=== PATIENT | female | born 1955 | race Hispanic/Latino ===

== ENCOUNTER 2018-11-18 05:37 | Inpatient (IN) | payer OTHER ==
--- NOTE | 2018-11-18 06:00 | ED PDOC ---
Arrival/HPI - General Chief Complaint: Palpitations Time Seen by Provider: 11/18/18 05:38 Historian: Patient - History of Present Illness Narrative History of Present Illness (Text): 11/18/18 05:56 63 year old female, whose past medical history includes Chondrosarcoma, hypertension, diabetes, and cardiac ablation for A-fib, presents to the emergency department complaining of heart palpitations this morning. Patient states she began to feel a rapid and irregular heart rate. Patient denies any associated chest pain or shortness of breath. Patient also denies any fever, chills, abdominal pain, or any other complaint. Time/Duration: Prior to Arrival Symptom Onset: Gradual Symptom Course: Unchanged Activities at Onset: Light Context: Home Past Medical History - Provider Review Nursing Documentation Reviewed: Yes - Infectious Disease Hx of Infectious Diseases: None - Cardiac Hx Cardiac Disorders: Yes Hx Atrial Fibrillation: Yes Hx Hypertension: Yes - Pulmonary Hx Respiratory Disorders: No - Neurological Hx Neurological Disorder: No - HEENT Hx HEENT Disorder: No - Renal Hx Renal Disorder: No - Endocrine/Metabolic Hx Endocrine Disorders: Yes Hx Diabetes Mellitus Type 2: Yes - Hematological/Oncological Hx Blood Disorders: No - Integumentary Hx Dermatological Disorder: No - Musculoskeletal/Rheumatological Hx Musculoskeletal Disorders: No - Gastrointestinal Hx Gastrointestinal Disorders: No - Genitourinary/Gynecological Hx Genitourinary Disorders: No - Psychiatric Hx Psychophysiologic Disorder: Yes Hx Depression: Yes Hx Substance Use: No Family/Social History - Physician Review Nursing Documentation Reviewed: Yes Family/Social History: No Known Family HX Smoking Status: Never Smoked Hx Alcohol Use: No Hx Substance Use: No Allergies/Home Meds Allergies/Adverse Reactions: Allergies strawberry Allergy (Verified 11/18/18 05:46) RASH Home Medications: Home Meds Medication Instructions Recorded Confirmed Atenolol 100 mg PO DAILY 11/18/18 11/18/18 Atorvastatin [Lipitor] 40 mg PO DAILY 11/18/18 11/18/18 Bupropion HCl [Wellbutrin XL] 300 mg PO DAILY 11/18/18 11/18/18 Dapagliflozin/Metformin HCl 1 tab PO DAILY 11/18/18 11/18/18 [Xigduo Xr 10 mg-1,000 mg Tab] Fenofibrate [Tricor] 145 mg PO DAILY 11/18/18 11/18/18 Glipizide [Glipizide ER] 10 mg PO DAILY 11/18/18 11/18/18 Linagliptin [Tradjenta] 5 mg PO DAILY 11/18/18 11/18/18 Losartan Potassium 50 mg PO DAILY 11/18/18 11/18/18 Review of Systems - Physician Review All systems were reviewed & negative as marked: Yes - Review of Systems Constitutional: absent: Fevers, Night Sweats Respiratory: absent: SOB Cardiovascular: Palpitations. absent: Chest Pain Gastrointestinal: absent: Abdominal Pain Physical Exam Vital Signs Reviewed: Yes Vital Signs Temp Pulse Resp BP Pulse Ox 11/18/18 05:53 119 H 17 134/83 96 11/18/18 05:46 97.6 F 175 H 20 183/118 H 95 Temperature: Afebrile Blood Pressure: Hypertensive Pulse: Tachycardic Respiratory Rate: Normal Appearance: Positive for: Well-Appearing, Non-Toxic, Comfortable Pain Distress: None Mental Status: Positive for: Alert and Oriented X 3, other (Obese) Finger Stick Blood Glucose: 215 - Systems Exam Head: Present: Atraumatic, Normocephalic Pupils: Present: PERRL Extroacular Muscles: Present: EOMI Conjunctiva: Present: Normal Mouth: Present: Moist Mucous Membranes Neck: Present: Normal Range of Motion Respiratory/Chest: Present: Clear to Auscultation, Good Air Exchange. No: Respiratory Distress, Accessory Muscle Use Cardiovascular: Present: Normal S1, S2, Irregular Rhythm (Irregularly Irregular), Tachycardic. No: Murmurs Abdomen: No: Tenderness, Distention, Peritoneal Signs Back: Present: Normal Inspection Upper Extremity: Present: Normal Inspection. No: Cyanosis, Edema Lower Extremity: Present: Normal Inspection. No: Edema, CALF TENDERNESS Neurological: Present: GCS=15, CN II-XII Intact, Speech Normal Skin: Present: Warm, Dry, Normal Color. No: Rashes Psychiatric: Present: Alert, Oriented x 3, Normal Insight, Normal Concentration Medical Decision Making ED Course and Treatment: 11/18/18 06:02 Impression: 63 year old female presents with rapid Afib. Plan: -- EKG -- Cardiac Iso, CMP -- CBC, Platelets -- Chest X-ray -- Cardizem -- Reassess and disposition Prior Visits: Notes and results from previous visits were reviewed. Progress Notes: 11/18/18 06:48 Case was discussed with /accepts to her service. - RAD Interpretation Radiology Orders: 11/18/18 05:47 CHEST PORTABLE [RAD] Stat - EKG Interpretation EKG Interpretation (Text): 11/18/18 06:14 EKG-Atrial fibrillation@ 177 NS T wave changes Interpreted by ED Physician: Yes Type: 12 lead EKG - Medication Orders Current Medication Orders: diltiaZEM IVPB 100mg in NS (Cardizem 100mg In Ns) 100 mls @ 5 mls/hr IV .Q20H PRN; Protocol PRN Reason: TITRATE PER MD ORDER Discontinued Medications Diltiazem HCl (Cardizem) 20 mg IVP ONCE ONE Stop: 11/18/18 05:48 - Scribe Statement The provider has reviewed the documentation as recorded by the Scribe Samson Parks Provider Scribe Attestation: All medical record entries made by the Scribe were at my direction and personally dictated by me. I have reviewed the chart and agree that the record accurately reflects my personal performance of the history, physical exam, medical decision making, and the department course for this patient. I have also personally directed, reviewed, and agree with the discharge instructions and disposition. Disposition/Present on Arrival - Present on Arrival Any Indicators Present on Arrival: No History of DVT/PE: No History of Uncontrolled Diabetes: No Urinary Catheter: No History of Decub. Ulcer: No History Surgical Site Infection Following: None - Disposition Have Diagnosis and Disposition been Completed?: Yes Diagnosis: Rapid atrial fibrillation Disposition: HOSPITALIZED Disposition Time: 06:43 Patient Problems: Current Active Problems Problem Status Onset Rapid atrial fibrillation Acute Condition: STABLE Referrals: Holly Grady MD [Primary Care Provider] - Follow up with primary Forms: [employer] ([place]an)
[2018-11-18] MEDS: diltiaZEM IVPB 100mg in NS 100 ML IV PRN ×3 (06:03→06:34)
[2018-11-18 06:12] LABS: HEMOGLOBIN 14.1 g/dL (12.0-16.0); MEAN CELL VOLUME 86.8 fl (80.0-105.0); MEAN CORPUSCULAR HEMOGLOBIN 28.1 pg (25.0-35.0); MEAN CORPUSCULAR HGB CONC 32.4 g/dl (31.0-37.0); MEAN PLATELET VOLUME 9.8 fl (7.0-11.0); RBC 5.01 10^6/uL (3.5-6.1); RED CELL DISTRIBUTION WIDTH 14.7 % (11.5-14.5); WHITE BLOOD COUNT 7.7 10^3/uL (4.5-11.0)
[2018-11-18 06:17] LABS: INR 0.93; PARTIAL THROMBOPLASTIN TIME 34.4 Seconds (26.9-38.3); PROTHROMBIN TIME 10.5 SECONDS (9.4-12.5)
[2018-11-18 06:19] LABS: ALB/GLOB RATIO 1.3 (1.1-1.8); ALT/SGPT 26 U/L (7-56); AST/SGOT 22 U/L (14-36); BLOOD UREA NITROGEN 15 mg/dL (7-21); CALCIUM 9.5 mg/dL (8.4-10.5); GFR NON-AFRICAN AMERICAN > 60
[2018-11-18 06:31] LABS: TROPONIN I < 0.01 ng/mL
--- NOTE | 2018-11-18 08:03 | RAD ---
Date of service: 11/18/2018 HISTORY: fever COMPARISON: No prior. TECHNIQUE: 1 view obtained. FINDINGS: LUNGS: No active pulmonary disease. PLEURA: No significant pleural effusion identified, no pneumothorax apparent. CARDIOVASCULAR: No aortic atherosclerotic calcification present. Normal cardiac size. No pulmonary vascular congestion. OSSEOUS STRUCTURES: No significant abnormalities. VISUALIZED UPPER ABDOMEN: Normal. OTHER FINDINGS: None. IMPRESSION: No active disease.
[2018-11-18] MEDS: buPROPion 300 mg/24 Hours XL Tab PO SCH (11:12)
[2018-11-18 11:31] VITALS: BMI 52.7
--- NOTE | 2018-11-18 12:29 | CARD ---
APPROVED REPORT Date of service: 11/18/2018 EKG Measurement Heart [id number] <Conclusion> Atrial fibrillation with rapid ventricular response Abnormal QRS-T angle, consider primary T wave abnormality Abnormal ECG
[2018-11-18] MEDS: Insulin Lispro (humaLOG) MEDIUM Coverage SC SCH ×3 (13:29→21:25)
[2018-11-18] MEDS ORDERED: diltiaZEM IVPB 100mg in NS 100 ML IV PRN (19:23)
--- NOTE | 2018-11-18 21:16 | CON ---
DATE OF CONSULTATION: 11/18/2018 CARDIOLOGY CONSULTATION REASON FOR CONSULTATION: AFib with the rapid ventricular rate (recurrence of AFib, status post radiofrequency ablation 9 years ago). 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 Currently, the patient is on IV Cardizem. Denies any chest pain, denies any shortness of breath, denies any palpitation. PAST MEDICAL HISTORY: Significant for poorly controlled diabetes with elevated hemoglobin A1c, more than 7 or 8; history of hypertension; history of radiofrequency ablation 9 years ago; history of stress test 9 years ago at the time of radiofrequency ablation, before ablation, was found to be negative. Lost followup with the Cardiology, only saw Dr. Holly Grady recently. 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 Past history is also significant for diabetes, hypertension, and hyperlipidemia. PAST SURGICAL HISTORY: Significant for chondrosarcoma, status post amputation of the right hip and fixed with the femur; history of severe left knee arthritis, requiring surgery, but the orthopedic surgeons are concerned about the poorly controlled diabetes, obesity, and comorbidity of high risk, so was not entertained for surgery; history of radiofrequency ablation 9 years ago for atrial fibrillation since no further episode was happened. SOCIAL HISTORY: Quit smoking, she smoked six years ago; denies any history of alcohol abuse. FAMILY HISTORY: Significant for brother with large heart secondary to viral myocarditis. CURRENT MEDICATIONS: The patient is taking at home losartan 50 mg daily, Tradjenta, atenolol, fenofibrate, ibuprofen, glipizide, atorvastatin, and metformin. ALLERGIES: ALLERGY TO STRAWBERRY. REVIEW OF SYSTEMS: As per HPI. PHYSICAL EXAMINATION: As follows; GENERAL: Height of the patient 5 feet, weight of the patient 170 pounds, and body mass index 33.2 kg/m2. VITAL SIGNS: Temperature afebrile, heart rate 105, and blood pressure 126/60. HEENT: PERRLA. Extraocular muscles intact. NECK: Supple. No carotid bruits or thyromegaly. CHEST: Clear to auscultation. HEART: S1 and S2 regular. ABDOMEN: Soft. EXTREMITIES: Clubbing and cyanosis, negative. LABORATORY DATA: Blood workup as follows; WBC 7.7, hemoglobin 14.3, hematocrit 43.1, and platelet count 329. Chemistry shows sodium 139, potassium 4.0, chloride 105, carbon dioxide 24, anion gap of 14, BUN 15, and creatinine 0.3. EKG shows AFib with the rapid ventricular rate. IMPRESSION: A 63-year-old female, morbidly obese, history of chondrosarcoma of hip status post amputation and fixed to the femur of the right hip joint to the femur, history of radiofrequency ablation, history of paroxysmal atrial fibrillation 9 years ago, history of ablation and the patient remained in normal sinus, hypertension, hyperlipidemia, and poorly controlled diabetes, admitted with new onset of atrial fibrillation with rapid ventricular rate. RECOMMENDATIONS: We will start IV Cardizem drip to 10 mg, get beta sharon and give load with amiodarone, start low dose of Eliquis, echo to assess LV function. Further recommendation after the hospital course. We discussed with the patient that the patient may need one more round of radiofrequency ablation if the rate is well controlled and stabilized. We will also get TSH, hemoglobin A1c as well as we will do the lipid profile. We will follow with you. Thank you Dr. Yoder for providing us the opportunity in taking care of the patient, Gail Ingram. Yasmin Nash MD
--- NOTE | 2018-11-18 23:22 | HP ---
DATE OF EXAM: 11/18/2018 HISTORY OF PRESENT ILLNESS: Patient is a 63-year-old white female came to the emergency room because of having dry throat, burning in throat, and feeling of palpitations. She states she did not feel good at all, so she called ambulance and she was brought to emergency room. She had similar feeling 8 to 9 years ago before, she had ablation done for her AFib. Patient said she had ablation done in [place], since then she has been doing well. They took her off of anticoagulants. Vinnie any fever or chills. No history of nausea or vomiting. Patient states she felt well last night, went to sleep, but this morning she woke up with the above-mentioned symptoms. PAST MEDICAL HISTORY: Significant for: 1. Hypertension. 2. Insulin-dependent diabetes. 3. History of atrial fibrillation in remote past status post ablation, since then she has been in regular rhythm. 4. History of chondrosarcoma and she is status post right hip amputation. She is basically wheelchair bound and has difficulty walking. ALLERGIES: SHE IS ALLERGIC TO STRAWBERRIES. MEDICATIONS AT HOME: She is on losartan 50 mg daily, Trajenta 5 mg daily, atenolol 100 mg daily, TriCor 145 daily, bupropion 300 daily, Lipitor 10 mg daily, atorvastatin 40 mg daily. She is on Xigduo XR 05/1000 of metformin daily. SOCIAL HISTORY: She is not . Does not have children. She used to smoke early in young age. She works in [employer]. PHYSICAL EXAMINATION: GENERAL: She is awake, alert, oriented, and communicative. VITAL SIGNS: She is afebrile. Pulse 145, respirations 19, blood pressure 136/78. LUNGS: Bilateral fair airflow. No rhonchi or crackles. HEART: S1 and S2 audible, irregular rate, tachycardic. ABDOMEN: Soft, obese, nontender. No rebound. No guarding. NEUROLOGIC: Patient is awake, and alert, able to communicate. EXTREMITIES: She has right foot deformity because of her previous surgery. She does have history of left knee osteoarthritis, for that she was supposed to have surgery done if her sugar is under control. Bilateral leg +1 edema. LABORATORY DATA: WBC is 7.7, hemoglobin 14, hematocrit 43, and platelets 329. PT 10.5. INR 0.93. Sodium 139, potassium 4.1, chloride 105, CO2 of 24, BUN 15, creatinine 0.3. Blood sugar of 215. X-ray of the chest shows no active disease. ASSESSMENT: 1. Rapid atrial fibrillation. 2. History of ablation 8 to 9 years ago. 3. Morbid obesity. 4. Noninsulin-dependent diabetes. 5. Hypertension. 6. Hyper lipidemia. 7. History of right hip chondrosarcoma status post amputation of right hip. PLAN: Currently, the patient is on Cardizem drip. She was given amiodarone 400 three times a day, loading dose today and will be started on amiodarone 200 daily. She is on losartan. She is on Eliquis. She is on glipizide. I will resume her usual medications. Thyroid profile and lipid profile has been ordered. Dr. Nash has been consulted. We will follow up with the patient in the a.m. Ruddy Yoder MD
[2018-11-19 00:48] VITALS: RESP 20
[2018-11-19 06:16] VITALS: O2SAT 98
[2018-11-19 06:25] LABS: BASO # 0.02 K/mm3 (0.0-2.0); BASO % 0.2 % (0.0-3.0); EOS # 0.1 (0.0-0.7); EOS % 0.9 % (1.5-5.0); HEMOGLOBIN 12.9 g/dL (12.0-16.0); LYMPH # 1.8 (1.2-3.4); LYMPH % 18.8 % (22.0-35.0); MEAN CELL VOLUME 87.4 fl (80.0-105.0); MEAN CORPUSCULAR HGB CONC 32.1 g/dl (31.0-37.0); MEAN PLATELET VOLUME 9.7 fl (7.0-11.0); MONO # 0.5 (0.1-0.6); MONO % 4.9 % (1.0-6.0); RBC 4.6 10^6/uL (3.5-6.1); RED CELL DISTRIBUTION WIDTH 14.9 % (11.5-14.5); WHITE BLOOD COUNT 9.8 10^3/uL (4.5-11.0)
[2018-11-19 07:14] LABS: ALB/GLOB RATIO 1.2 (1.1-1.8); ALBUMIN 3.4 g/dL (3.0-4.8); ALT/SGPT 25 U/L (7-56); AST/SGOT 19 U/L (14-36); BLOOD UREA NITROGEN 15 mg/dL (7-21); CALCIUM 8.7 mg/dL (8.4-10.5); GFR NON-AFRICAN AMERICAN > 60; HDL CHOLESTEROL 29 mg/dL (29-60)
[2018-11-19 07:22] LABS: LDL CHOLESTEROL 108 mg/dL (0-129)
[2018-11-19] MEDS: Insulin Lispro (humaLOG) MEDIUM Coverage SC SCH ×3 (08:00→17:04)
[2018-11-19] MEDS ORDERED: Aminophylline 25 mg/ml Inj ONE (09:08)
[2018-11-19] MEDS ORDERED: GlipiZIDE 10 mg SR Tab PO SCH (10:00)
--- NOTE | 2018-11-19 10:17 | CARD ---
APPROVED REPORT Date of service: 11/19/2018 EKG Measurement Heart [id number] <Conclusion> Normal sinus rhythm Low voltage QRS Poor Progression of R V1-V3 Non Specific ST_T Changes.
--- NOTE | 2018-11-19 11:32 | PN ---
DATE: 11/19/2018 REASON FOR CONSULTATION AND FOLLOWUP: Atrial fibrillation, rapid rate new onset; history of status post radio frequency ablation 9 years ago; converted spontaneously to normal sinus on amiodarone. SUBJECTIVE: The patient denies any chest pain, shortness of breath and any palpitation. OBJECTIVE: GENERAL: Not in apparent distress. VITAL SIGNS: Temperature afebrile. Heart rate 71 and blood pressure 122/83. HEENT: PERRLA. Extraocular muscles intact. NECK: Supple. No carotid bruit. No thyromegaly. CHEST: Clear to auscultation. HEART: S1 and S2, regular. ABDOMEN: Soft. EXTREMITIES: Clubbing and cyanosis negative. LABORATORY DATA: WBC 9.2, hemoglobin 12.9, hematocrit 40.2 and platelet count 320. Chemistry shows sodium 130, potassium 3.8, chloride 104, carbon dioxide 26, anion gap of 12, BUN 15 and creatinine 0.3. IMPRESSION: A 63-year-old female with past medical history significant for atrial fibrillation 8 to 9 years ago, status post radio frequency ablation in [facility] by , history of chondrosarcoma of right hip, status post amputation of right hip and fixed with a femur bone into the hip bone, history of left knee arthritis requiring surgery admitted yesterday with a new onset of atrial fibrillation and rapid rate. The patient started on Cardizem, amiodarone and atenolol, converted to normal sinus, off Cardizem. RECOMMENDATION: Discontinue Cardizem IV, start Cardizem p.o., continue atenolol, continue amiodarone. Change Cardizem to p.o. For risk stratification suggest stress test this morning. Keep n.p.o. We will get echo to assess LV function. Continue Eliquis for 4 weeks. If the stress test done found to be abnormal, we will consider cardiac catheterization after 3 to 4 weeks of anticoagulation after AFib. We will follow with you. Thank you Dr. Yoder for providing us the opportunity in taking care of the patient, Gail Ingram. If remained stable, possible discharge home on Eliquis, atenolol and Cardizem. Yasmin Nash MD [facility] # [id number]
[2018-11-19] MEDS: buPROPion 300 mg/24 Hours XL Tab PO SCH (12:20)
[2018-11-19 17:08] VITALS: BP 111/76
[2018-11-19 18:32] VITALS: PULSE 64; TEMP 98.3
--- NOTE | 2018-11-19 19:32 | CARD ---
APPROVED REPORT Date of service: 11/19/2018 EXAM: Two-dimensional and M-mode echocardiogram with Doppler and color Doppler. INDICATION Atrial Fibrillation 2D DIMENSIONS Left Atrium (2D)4.0 (1.6-4.0cm)IVSd1.3 (0.7-1.1cm) LVDd3.8 (3.9-5.9cm)PWd1.2 (0.7-1.1cm) LVDs2.5 (2.5-4.0cm)FS (%) 34.7 % LVEF (%)64.7 (>50%) M-Mode DIMENSIONS Aortic Root2.10 (2.2-3.7cm)Aortic Cusp Exc.1.20 (1.5-2.0cm) Aortic Valve AoV Peak Eoaipjrc832.0cm/Cory Peak GR.26mmHg Mitral Valve MV E Pkpthply191.0cm/sMV A Evannymb74.7cm/sE/A ratio1.4 TDI E/Lateral E'0.0E/Medial E'0.0 Tricuspid Valve TR Peak Shmxmgmy461kc/sRAP [id number] Peak Gr.29mmHg [id number] LEFT VENTRICLE The left ventricle is normal size. There is mild concentric left ventricular hypertrophy. The left ventricular function is normal.EF-65% There is normal LV segmental wall motion. Transmitral Doppler flow pattern is Grade II-pseudonormal filling dynamics. No left ventricle thrombus noted on this study. There is no ventricular septal defect visualized. There is no left ventricular aneurysm. There is no mass noted in the left ventricle. RIGHT VENTRICLE The right ventricle is normal size. There is normal right ventricular wall thickness. The right ventricular systolic function is normal. ATRIA The left atrium is borderline dilated. The right atrium size is normal. The interatrial septum is intact with no evidence for an atrial septal defect. AORTIC VALVE The aortic valve is calcified and displays decreased opening. There is trace aortic regurgitation. There is mild valvular aortic stenosis. There is no aortic valvular vegetation. MITRAL VALVE The mitral valve is thickened but opens well. Mitral regurgitation is mild. There is no mitral valve stenosis. There is no evidence of mitral valve prolapse. TRICUSPID VALVE The tricuspid valve leaflets are thickened , but open well. There is mild tricuspid regurgitation.RVSP-39 mmof Hg There is no tricuspid valve stenosis. There is no tricuspid valve prolapse or vegetation. PULMONIC VALVE The pulmonary valve is normal in structure. There is no pulmonic valvular regurgitation. There is no pulmonic valvular stenosis. GREAT VESSELS The aortic root is normal in size. The ascending aorta is normal in size. The pulmonary artery is normal. The IVC is normal in size and collapses >50% with inspiration. PERICARDIAL EFFUSION There is no pleural effusion. There is no pericardial effusion. <Conclusion> The left ventricle is normal size. There is mild concentric left ventricular hypertrophy. The left ventricular function is normal.EF-65% There is trace aortic regurgitation. There is mild valvular aortic stenosis. Mitral regurgitation is mild. There is mild tricuspid regurgitation.RVSP-39 mmof Hg The IVC is normal in size and collapses >50% with inspiration. There is no pericardial effusion No thrombus or vegetation noted. Pt was in NSR at the time of Study.
--- NOTE | 2018-11-19 22:42 | CARD ---
APPROVED REPORT Date of service: 11/19/2018 Protocol: LEXISCAN Test Type: Lexiscan Sestamibi Stress Test Attending Physician: Dr. Yasmin Neff Referring Physician: Dr. Ruddy Yoder Test Indications: Chest Pain Height:5 ft 0 in Weight:270lbs Medications: Tricor, Glipizide, Humalog Insulin Cozaar, Amiodarone, Eliquis Cardizem, Tylenol,Tenormin, Lipitor, Wellbutrin, Medical History: 63 year old female with ahistory of A Fib, diabetes, HTN, depression, falls Target HR: 158 bpm Resting ECG: RSR. Poor R Progression of R Progression V1-V3 Resting Heart Rate: 71 bpm Resting Blood Pressure: 140/92mmHg Submaximum (85%): 134 bpm PROCEDURE Pharmacologic stress testing was performed using 0.4mg per 5ml of regadenoson given intravenously over 7-10 seconds. POST EXERCISE Reason for Termination: Protocol completed Target HR: No Max HR: 68 bpm 52% of Maximum Predicted HR: 158 bpm Exercise duration: 00:31 min:sec, 0 Stage Exercise capacity: 1.0METs Max Blood Pressure: 140/92mmHg Blood Pressure response to exercise: normal resting BP - appropriate response Heart Rate response to exercise: appropriate Chest Pain: Yes, Ola Slight Pressure Like Chest Pain Angina index: 0 Arrhythmia: No, none ST Change: No, none Deviation: 0 mm INTERPRETATION Stress EKG Conclusion: IV LEXISCAN NUCLEAR STRESS TEST DURING WHICH PATIENT FELT SLIGHT PRESSURE LIKE CHEST PAIN. NO ST-T CHANGES SEEN. NUCLEAR SCAN REPORT PENDING. Signed by Yasmin Neff Electronically Approved: 11/19/2018 09:53:54 EXAM: Myocardial Perfusion STRESS/REST Stress Test Type: Pharmacologic Imaging Protocol The imaging protocol used to acquire images was Stress Tc-99m/rest Tc-99m 1 day Rest Spect myocardial perfusion imaging was performed in supine position 50 minutes following the injection of 30.2 mCi of Tc-99 Myoview. At peak stress, the patient was injected intravenously with 10.9mCi of Tc-99 tetrofosmin after an infusion time of 0 minutes and 10 seconds. Gated Stress Spect was performed 65 minutes after intravenous Tc-99 Myoview injection. The images were gated to evaluate regional wall motion and calculate ventricular ejection fraction.Images were reconstructed using backfilter projection method in short horizontal and verticle long axis. Spect slices were generated. LV Perfusion The quality of the study is good. The left ventricle is within normal limits in size. The right ventricle is unremarkable. The lung uptake is normal. The distribution of tracer reveals a small area of mildly decresed perfusoin involving distal anteroseptal wall and an area of moderately decreased perfusion involving mid to basal inferolateral pittman on the stress study. The remainder of the LV myocardium is unremarkable. The rest myocardial perfusion study shows improvement of the defects. Wall Motion Wall motion study shows normal contractilty of the left ventricle. LVEF =72%. Conclusion 1. Abnormal SPECT myocardial perfusion study. 2. Reversible, distal aneroseptal and partially reversible, inferolateral defects are suspicious of ischemia. 3. Normal gated wall motion of the left ventrcle.
--- NOTE | 2018-11-20 00:32 | DS ---
HOSPITAL COURSE: The patient is 63 years old, seen and examined, just came from stress test, doing well. No chest pain. No shortness of breath. Tachycardia has improved. PHYSICAL EXAMINATION: VITAL SIGNS: She is afebrile, pulse 66, respirations 20, and blood pressure 140/92. LUNGS: Bilateral fair airflow. No rhonchi or crackle. HEART: S1 and S2 audible. ABDOMEN: Soft, obese, and nontender. No rebound. No guarding. NEUROLOGIC: The patient is awake and alert, able to communicate. LABORATORY DATA: WBC is 9.8, hemoglobin 12, hematocrit 40, and platelets are 320. Chemistry; sodium 138, potassium 3.8, chloride 104, CO2 of 26, BUN 15, creatinine 0.6, blood sugars are 166. She had stress test done that is pending. EKG this morning shows normal sinus rhythm. ASSESSMENT: 1. History of atrial fibrillation, status post radiofrequency ablation and recurrence of atrial fibrillation. 2. Hypertension. 3. History of right acetabular chondrosarcoma, status post amputation. 4. Insulin-dependant diabetes. 5. Hypertension. 6. Hyperlipidemia. DISCHARGE PLAN: The patient is clinically stable, she wants to go home. She was given offer to stay, so we can have stress test done and monitor and if need catheterization will be done in a.m., but she preferred to go home and she wants to come back in case if she needs cardiac cath. So, we will discharge her on amiodarone 200 mg daily and Eliquis 5 mg twice a day. She will be discharged later on today if cleared by Cardiology. Ruddy Yoder MD
== END 2018-11-19 21:31 | disposition home or self-care (01) | DRG 309 ==
LOC: ED 05:37 → ERH 06:44 → 2RNO 08:56
PROVIDERS: ADMIT Internal Medicine; ATTEND Internal Medicine
DX: I48.0 Paroxysmal atrial fibrillation (principal); Z68.43 Body mass index [BMI] 50.0-59.9, adult; I10 Essential (primary) hypertension; E11.65 Type 2 diabetes mellitus with hyperglycemia; E66.01 Morbid (severe) obesity due to excess calories; M19.90 Unspecified osteoarthritis, unspecified site; E78.5 Hyperlipidemia, unspecified; R26.2 Difficulty in walking, not elsewhere classified; Z85.830 Personal history of malignant neoplasm of bone; Z89.621 Acquired absence of right hip joint; Z87.891 Personal history of nicotine dependence; Z79.899 Other long term (current) drug therapy; Z99.3 Dependence on wheelchair; Z79.84 Long term (current) use of oral hypoglycemic drugs